=== PATIENT | female | born 1960 | race Caucasian/White ===

== ENCOUNTER → 2018-02-12 | Outpatient (CLI) | payer BC ==
[~2018-02-12] VITALS: Ht 154.9 cm; Wt 90.7 kg
[~2018-02-12] MED LIST: ANTIVERT25 MG PO; Aspirin Chewable PO; CIPROFLOXACIN500 M1 PO; CLINDAMYCIN HC300 MG PO; CLONAZEPAM0.5 MG PO; COLACE100 MG PO; CYMBALTA30 MG PO; DAILY VALUE1 EACH PO; EFFEXOR37.5 MG PO; HYDROCODON-ACE1 EAC7 PO; LISINOPRIL20 MG PO; LO-DOSE ASPIRIN81 M2 PO; METOPROLOL SUCC25 MG PO; MIRALAX17 GM PO; MOBIC7.5 MG PO; MOTRIN600 MG PO; PRILOSEC20 MG PO; PROZAC20 MG PO; SYNTHROID75 MCG PO; SYNTHROID88 MCG PO; TOPAMAX100 MG PO; TRAZODONE HCL50 MG PO; TYLENOL ARTHRI650 MG PO; ULTRACET1 TABLET PO; VALIUM5 MG PO
== END | disposition home or self-care (01) ==
LOC: AMB 02-09 08:30
PROC: 0DJD8ZZ Inspection of Lower Intestinal Tract, Via Natural or Artificial Opening Endoscopic (ICD-10-PCS; principal; 2018-02-12)
DX: Z12.11 Encounter for screening for malignant neoplasm of colon (principal); K57.30 Diverticulosis of large intestine without perforation or abscess without bleeding; Z80.0 Family history of malignant neoplasm of digestive organs; K64.8 Other hemorrhoids; Z80.3 Family history of malignant neoplasm of breast; Z80.1 Family history of malignant neoplasm of trachea, bronchus and lung; Z82.49 Family history of ischemic heart disease and other diseases of the circulatory system; Z79.82 Long term (current) use of aspirin; E78.5 Hyperlipidemia, unspecified; I10 Essential (primary) hypertension; E03.9 Hypothyroidism, unspecified; R73.03 Prediabetes

== ENCOUNTER 2018-04-16 16:30 | Emergency (ER) | payer BC ==
[~2018-04-16] VITALS: Ht 165.1 cm; Wt 93.8 kg
[2018-04-16 17:02] LABS: APPEARANCE SL.HAZY ((CLEAR)); BILIRUBIN NEGATIVE; BLOOD LARGE; COLOR AMBER ((YELLOW)); GLUCOSE (STRIP) NEGATIVE; KETONES NEGATIVE; LEUKOCYTES LARGE; NITRITE POSITIVE; PROTEIN (STRIP) 30; SPECIFIC GRAVITY 1.006 (1.000-1.030)
[2018-04-16 17:23] LABS: HEMOGLOBIN 12.5 G/DL (11.9-15.5); MCH 29.8 PG (29.0-34.0); MCHC 33.8 G/DL (30.0-36.0); MCV 88.3 FL (83-99); PLATELET COUNT 246 K/uL (156-360); RBC DIS.WIDTH-CV 12.5 % (11.8-14.6); RBC DIS.WIDTH-SD 40.2 % (39-53); RED BLOOD COUNT 4.19 M/uL (3.80-5.20); WHITE BLOOD COUNT 11.7 K/uL (4.1-10.2)
[2018-04-16] MEDS ORDERED: BACTRIM,SEPT1 TABLET PO ×2 (17:25→18:08)
[2018-04-16] MEDS ORDERED: MOTRIN600 MG PO (17:25)
[2018-04-16] MEDS ORDERED: PYRIDIUM200 MG PO (17:25)
[2018-04-16 17:36] LABS: ALBUMIN 4.5 g/dL (3.2-4.8); CHLORIDE 105 mEq/L (99-109); POTASSIUM 4.2 mEq/L (3.7-5.4); SODIUM 144 mEq/L (136-147)
[2018-04-16 17:39] LABS: GLUCOSE 92 mg/dL (70-99); TOTAL PROTEIN 7.6 g/dL (6.4-8.3)
[2018-04-16 17:40] LABS: TOTAL BILIRUBIN 0.3 mg/dL (0.0-1.0)
[2018-04-16 17:42] LABS: ALKALINE PHOSPHATASE 84 IU/L (3-129); CREATININE 1.1 mg/dL (0.6-1.3); GFR ESTIMATE (CALCULATED) 55 mL/min/
[2018-04-16 17:43] LABS: UREA NITROGEN (BUN) 14 mg/dL (9-23)
[2018-04-16 17:44] LABS: AST (GOT) 16 IU/L (2-34)
[2018-04-16 17:45] LABS: ALT (GPT) 20 IU/L (3-49)
[2018-04-16 18:02] LABS: BACTERIA 1+ /HPF; EPITHELIAL CELLS RARE /HPF; MUCUS NONE SEEN /LPF; UCUL ADDED? YES; WHITE BLOOD CELLS TNTC /HPF (0-5)
[2018-04-16 18:12] VITALS: BP 137/101
== END 2018-04-16 18:13 | disposition home or self-care (01) ==
LOC: EME 16:30
PROVIDERS: Nurse Practitioner Family
DX: N39.0 Urinary tract infection, site not specified (principal); I10 Essential (primary) hypertension; Z87.891 Personal history of nicotine dependence; Z79.82 Long term (current) use of aspirin; Z88.1 Allergy status to other antibiotic agents; Z88.5 Allergy status to narcotic agent; Z88.8 Allergy status to other drugs, medicaments and biological substances
CPT/HCPCS: 80053; 81003; 85027; 87077; 87086; 87186; 99281; 99284